=== PATIENT | male | born 1940 | race Caucasian/White ===

== ENCOUNTER 2019-08-04 21:54 | Inpatient (IN) | payer MEDICARE, MEDICAID ==
[~2019-08-04] VITALS: Ht 185.4 cm; Wt 68.0 kg
[2019-08-04 22:02] VITALS: BP 156/75
--- NOTE | 2019-08-04 22:02 | NUR ---
ED Nurse Note: Walk-in patient accompanied by son with complaints of dizziness x a couple of days. Patient is ambulatory with steady gait, and no s/s of acute distress. Will continue to monitor.
--- NOTE | 2019-08-04 22:18 | Emergency Room Report ---
History of Present Illness General Chief Complaint: Generalized Weakness Source: Patient, Family Member Present Illness HPI Is an 78-year-old male with no past medical history but does not see his doctors for many years. He presents with chief complaint of generalized weakness. Onset for last couple days. He complaining of lightheadedness. Said that hard time concentrating. Also noted to weakness in his right lower extremity. Denies any shortness of breath. Denies any fever chills but no nausea no vomiting. Worse with exertion. Better with rest. No slurred speech. Denies any chest pain. Allergies: Coded Allergies: No Known Allergies (Unverified , 08/04/19) Patient History Past Medical History: none, see triage record, old chart reviewed Past Surgical History: none Pertinent Family History: none Social History: Denies: smoking Immunizations: other Reviewed Nursing Documentation: PMH: Agreed; PSxH: Agreed Nursing Documentation-PM Past Medical History: No Stated History Review of Systems Constitutional: Reports: malaise, weakness Eye: Denies: eye pain, blurred vision ENT: Denies: ear pain, nose congestion, throat swelling Respiratory: Denies: cough, shortness of breath Cardiovascular: Denies: chest pain, palpitations Gastrointestinal: Denies: abdominal pain, diarrhea, nausea, vomiting Musculoskeletal: Denies: back pain, joint pain Skin: Denies: rash Neurological: Reports: dizziness; Denies: headache, numbness Endocrine: Denies: increased thirst, increased urine Hematologic/Lymphatic: Denies: easy bruising All Other Systems: negative except mentioned in HPI Physical Exam Vital Signs Date Time Temp Pulse Resp B/P (MAP) Pulse Ox O2 Delivery O2 Flow Rate FiO2 08/04/19 22:02 98.2 87 14 156/75 (102) 89 Room Air Vitals with high blood pressure Sp02 EP Interpretation: reviewed, normal General Appearance: no apparent distress, alert, thin Head: normocephalic, atraumatic Eyes: bilateral eye PERRL, bilateral eye EOMI ENT: hearing grossly normal, normal pharynx Neck: full range of motion, supple, no meningismus Respiratory: chest non-tender, lungs clear, normal breath sounds Cardiovascular #1: systolic murmur - 2/6, irregularly irregular Gastrointestinal: normal bowel sounds, non tender, no mass, no organomegaly, no bruit, non-distended Musculoskeletal: back normal, gait/station normal, normal range of motion Psychiatric: mood/affect normal Medical Decision Making Diagnostic Impression: Primary Impression: Episode of generalized weakness Additional Impressions: Renal mass, left Lung mass Sinus arrhythmia Anemia Qualified Codes: D64.9 - Anemia, unspecified ER Course Patient presents with generalized weakness. His son said that he had about a 20 pound weight loss in a month. Finally convinced him to go see the doctor. He has a large mass in the right upper lobe on the chest x-ray. This is new per his son. He was at [facility] about 5 to 6 years ago and had a normal chest x-ray. CT scan of his chest abdomen pelvis concerning for renal cell carcinoma with mets to the lung. No evidence of any infection. No evidence of TIA or CVA. Initially on my exam I thought that he may have atrial fibrillation EKG show arrhythmia. On the monitor, he has P waves with frequent PACs initially. Now very regular with occasional PVCs and PACs. Troponins negative. I discussed the case with Dr. Acevedo who will admit for further cardiac and oncology work-up. Lab Results Impression Labs unremarkable EKG Diagnostic Results Rate: normal Rhythm: NSR, other - marked sinus arrhythmia ST Segments: no acute changes Rhythm Strip Diag. Results EP Interpretation: yes Rate: 95 Rhythm: NSR, no ectopy, other - PACs Chest X-Ray Diagnostic Results Chest X-Ray Diagnostic Results : Chest X-Ray Ordered: Yes # of Views/Limited/Complete: 1 View Indication: Shortness of Breath EP Interpretation: Yes Interpretation: no pneumothorax, other - Large right upper lobe mass. Groundglass opacity with edema bilateral lobes. Impression: Other - RUL mass. interstitial edema Electronically Signed by: Audie Gould MD CT/MRI/US Diagnostic Results CT/MRI/US Diagnostic Results : Imaging Test Ordered: CT head, chest, abdomen and pelvis Impression Read by radiologist. CT head: Negative CT chest: Interstitial edema with moderate bilateral pleural effusions. Extensive adenopathy throughout the mediastinum. Enlarged with innumerable lesions arising from thyroid gland extending along the trachea. There is a heterogeneous mass within the right lateral aspect of the mediastinum measuring 7.5 x 5.4 cm. Favor metastatic disease from likely renal cell carcinoma. CT abdomen pelvis: Mass in the inferior pole of the left kidney measuring 4.7 x 3.9 cm. A large left renal cyst measuring 11 cm. Lytic lesion within the L4 vertebral body favor hemangioma Last Vital Signs Date Time Temp Pulse Resp B/P (MAP) Pulse Ox O2 Delivery O2 Flow Rate FiO2 08/04/19 22:02 98.2 87 14 156/75 (102) 89 Room Air Status: improved Disposition: ADMITTED INPATIENT Condition: Serious Audie Gould MD Aug 04, 2019 22:18
--- NOTE | 2019-08-04 22:30 | NUR ---
ED Nurse Note: Patient went over for CT.
--- NOTE | 2019-08-04 22:41 | NUR ---
ED Nurse Note: Patient returned from CT>
--- NOTE | 2019-08-04 22:51 | NUR ---
ED Nurse Note: Patient tolerated IV start well, blood lab collected and sent to lab.
[2019-08-04 23:07] LABS: EOSINOPHILS % (AUTO) 1.1 % (0.0-3.0); HEMOGLOBIN 9.4 G/DL (14.2-18.0); LYMPHOCYTES % (AUTO) 20.5 % (20.0-45.0); MEAN CORPUSCULAR VOLUME 78 FL (80-99); MONOCYTES % (AUTO) 8.4 % (1.0-10.0); NEUTROPHILS % (AUTO) 68.9 % (45.0-75.0); PLATELET COUNT 356 K/UL (150-450); RED BLOOD COUNT 3.99 M/UL (4.70-6.10); WHITE BLOOD COUNT 7.4 K/UL (4.8-10.8)
[2019-08-04 23:08] LABS: APPEARANCE,URINE SLIGHTLY CLOUDY; BILIRUBIN, URINE NEGATIVE (NEGATIVE); COLOR,URINE YELLOW; GLUCOSE, URINE (UA) NEGATIVE (NEGATIVE); KETONES,URINE NEGATIVE (NEGATIVE); LEUKOCYTE ESTERASE ,URINE 1+ (NEGATIVE); NITRITE,URINE NEGATIVE (NEGATIVE); PH,URINE 5 (4.5-8.0); PROTEIN,URINE 2+ (NEGATIVE); UROBILINOGEN,URINE NORMAL MG/DL (0.0-1.0)
--- NOTE | 2019-08-04 23:10 | Diagnostic Imaging Report ---
Indications: Altered mental status Technique: Spiral acquisitions obtained through the brain. Angled axial and coronal 5 x 5 mm slices were reconstructed. Total dose length product 1557 mGycm. CTDI vol(s) 64 mGy. Dose reduction achieved using automated exposure control Comparison: None. Findings: There is age-related enlargement of the ventricles and extra-axial CSF spaces. There is periventricular deep white matter low-attenuation, consistent with chronic microvascular ischemic changes. Old lacunar infarct is seen in the right lentiform nucleus and left external capsule. There is dolichoectasia of the vertebral and basilar arteries. No acute intracranial hemorrhage or edema, mass effect, nor midline shift. There is less orbits are unremarkable. There is some disease within the left sphenoid sinus. The mastoids are clear. The calvarium is intact. Impression: Chronic and age-related changes Negative for acute intracranial bleed or mass effect This agrees with the preliminary interpretation provided overnight by [facility] telerad[facility] service. The CT scanner at [facility] is accredited by the [employer] and the scans are performed using protocols designed to limit radiation exposure to as low as reasonably achievable to attain images of sufficient resolution adequate for diagnostic evaluation.
[2019-08-04 23:13] LABS: INR 1.1 (0.9-1.1)
[2019-08-04 23:16] VITALS: BP 140/61
[2019-08-04 23:17] LABS: ANION GAP 10 mmol/L (5-15); BLOOD UREA NITROGEN 32 mg/dL (7-18); CALCIUM 9.1 MG/DL (8.5-10.1); CARBON DIOXIDE 24 MMOL/L (21-32); CHLORIDE 106 MMOL/L (98-107); CREATININE 1.2 MG/DL (0.55-1.30); POTASSIUM 3.9 MMOL/L (3.5-5.1); SODIUM 140 MMOL/L (136-145)
[2019-08-04 23:22] LABS: ALANINE AMINOTRANSFERASE 14 U/L (12-78); ALBUMIN/GLOBULIN RATIO 0.7 (1.0-2.7); ALKALINE PHOSPHATASE 60 U/L (46-116); ASPARTATE AMINO TRANSFERASE 31 U/L (15-37); BILIRUBIN,TOTAL 0.5 MG/DL (0.2-1.0)
--- NOTE | 2019-08-04 23:41 | NUR ---
ED Nurse Note: Patient is resting comfortably, with no s/s of acute distress. Lab results have been generated and son has been informed. Will continue to monitor.
[2019-08-04] MEDS ORDERED: Omnipaque-300 100ml vial INJ ONE (23:45)
[2019-08-04] MEDS ORDERED: Omnipaque-300 100ml vial INJ PRN (23:45)
--- NOTE | 2019-08-05 00:10 | NUR ---
ED Nurse Note: Patient went over for Ct of abdomen with contrast.
--- NOTE | 2019-08-05 01:10 | NUR ---
ED Nurse Note: Patient resting comfortably with no s/s of acute distress. Patient's son is at bedside. Belongings sheet completed along with baseline swabs for CRE, VRE and MRSA. I will continue to monitor.
--- NOTE | 2019-08-05 02:01 | Diagnostic Imaging Report ---
CT CHEST With Contrast: Interstitial edema and moderate bilateral pleural effusions. Extensive adenopathy throughout the mediastinum. The thyroid is severely enlarged with innumerable lesions arising from the thyroid gland extending along the trachea into the mediastinum to the level of the aortic arch. There is a separate heterogeneous mass within the right lateral aspect of the mediastinum measuring 7.5 x 5.4 cm. These findings are favored metastatic likely representing renal cell carcinoma. Biopsy will be needed for confirmation. No central pulmonary embolism. Trace pericardial effusion. CT ABDOMEN + PELVIS With Contrast: Mass in the inferior pole of the left kidney measuring 4.7 x 3.9 cm highly suggestive of renal cell carcinoma. Additionally there is a large left renal cyst measuring 11 cm. Marked prostatomegaly. Advanced descending and sigmoid diverticulosis without diverticulitis. Lytic lesion within the L4 vertebral body favored to represent a hemangioma.
--- NOTE | 2019-08-05 02:30 | NUR ---
TRANSFER TO FLOOR: Patient transferred to as ordered, per Dr Null. Report given to CLARISSA Márquez. Belongings and medications given to . Family and or S/O informed of transfer.
--- NOTE | 2019-08-05 02:35 | NUR ---
NURSE NOTES: Received report from CLARISSA Clayton. regarding patients arrival on TELE floor form ED. Belingings checked and noted, head to toe assessment initiated with no skin breakdown observed. Orders carried out per MD. Will continue plan of care
[2019-08-05 03:00] VITALS: BP 137/78
--- NOTE | 2019-08-05 03:27 | NUR ---
NURSE NOTES: Called and left message to Kyrie Acevedo MD. regarding patient's arrival on the floor and admit orders.
[2019-08-05] MEDS ORDERED: HYDROcodone/Acetamin 5/325 tab ORAL PRN (03:45)
[2019-08-05] MEDS ORDERED: Acetaminophen 500mg (ES) tab ORAL PRN (03:45)
[2019-08-05] MEDS: Heparin 5000 units/ml inj SUBQ SCH ×3 (06:00→22:28)
--- NOTE | 2019-08-05 07:56 | NUR ---
HAND-OFF: Report given to Domingo Ashford RN. Patient in bed AAO X4 eating breakfast with no S/S of distress. Endorsed plan of care.
[2019-08-05 08:00] VITALS: BP 136/70
--- NOTE | 2019-08-05 08:13 | NUR ---
NURSE NOTES: Report received from CLARISSA Márquez. Pt is sitting up in bed eating breakfast with no signs of distress. A+Ox4, denies pain/SOB. Respirations are even and unlabored on 2 L NC. IV site is intact and saline locked. Bed is at lowest position, brakes engaged, siderails x2, bed alarm on, and call light within reach. Pt is in stable condition at this time; will continue to monitor.
[2019-08-05 09:11] LABS: BASOPHILS % (AUTO) 0.9 % (0.0-2.0); EOSINOPHILS % (AUTO) 0.6 % (0.0-3.0); HEMOGLOBIN 9.1 G/DL (14.2-18.0); LYMPHOCYTES % (AUTO) 20.5 % (20.0-45.0); MEAN CORPUSCULAR VOLUME 76 FL (80-99); MONOCYTES % (AUTO) 6.2 % (1.0-10.0); NEUTROPHILS % (AUTO) 71.8 % (45.0-75.0); PLATELET COUNT 365 K/UL (150-450); RED BLOOD COUNT 3.93 M/UL (4.70-6.10); RED CELL DISTRIBUTION WIDTH 15.2 % (11.6-14.8); WHITE BLOOD COUNT 7.2 K/UL (4.8-10.8)
[2019-08-05 09:37] LABS: BLOOD UREA NITROGEN 25 mg/dL (7-18); CALCIUM 8.9 MG/DL (8.5-10.1); CARBON DIOXIDE 24 MMOL/L (21-32)
--- NOTE | 2019-08-05 10:13 | Diagnostic Imaging Report ---
Indication: Shortness of breath Technique: One view of the chest Comparison: none Findings: There is a large right mediastinal mass, some of the boundaries of which are obscured that measures at least 8 cm in diameter. There is also marked widening of the upper mediastinum. There is diffuse bilateral interstitial disease. There is some evidence of bronchiectasis. There are Kirley B lines on the right. There are bilateral pleural effusions. The heart size is upper limits normal. No airspace consolidation Impression: Large right mediastinal mass. Recommend CT for further evaluation Marked upper mediastinal widening Diffuse bilateral interstitial disease. Acuity indeterminate, suspect combination of acute and chronic disease. Presence of bronchiectasis suggest a significant component of chronic fibrosis, but the presence of Kirley B lines on the right as well as the bilateral pleural fluid raises possibility of a component of interstitial edema
[2019-08-05 10:27] LABS: CHLORIDE 108 MMOL/L (98-107); POTASSIUM 3.7 MMOL/L (3.5-5.1); SODIUM 141 MMOL/L (136-145)
--- NOTE | 2019-08-05 10:31 | History & Physical ---
History of Present Illness General Date patient seen: Aug 05, 2019 Reason for Hospitalization: Generalized Weaknessabnormal weight lossleft renal and right lung massbilateral pleural effusions Present Illness HPI patient seen and examined full note dictated [id number] Mireya Villatoro Allergies: Coded Allergies: No Known Allergies (Unverified , 08/04/19) Patient History Healthcare decision maker Resuscitation status Do Not Resuscitate Advanced Directive on File No Review of Systems Review of Symptoms General ROS: no weight loss or fever Psychological ROS: no depression or mood changes, no memory loss Ophthalmic ROS: no visual changes or eye irritation ENT ROS: no nasal congestion, hearing loss, dizziness Allergy and Immunology ROS: no allergic symptoms or urticaria Hematological and Lymphatic ROS: no swollen glands, unusual bleeding or bruising Endocrine ROS: no polyuria, polydipsia, weight changes, temperature intolerance Respiratory ROS: no cough, shortness of breath, or wheezing Cardiovascular ROS: no chest pain or dyspnea on exertion Gastrointestinal ROS: denies abdominal pain, bright red blood in stool. Musculoskeletal ROS: no myalgias or arthralgias Neurological ROS: no TIA or stroke symptoms Dermatological ROS: no new or changing skin lesions, rashes or pruritis Physical Exam Physical Exam General appearance: alert, cooperative, no distress, appears stated age Head: Normocephalic, without obvious abnormality, atraumatic Eyes: conjunctivae/corneas clear. PERRL, EOM's intact. Fundi benign Throat: Lips, mucosa, and tongue normal. Teeth and gums normal Neck: supple, symmetrical, trachea midline, no adenopathy, thyroid: not enlarged, symmetric, no tenderness/mass/nodules, no carotid bruit and no JVD Lungs: clear to auscultation bilaterally Heart: regular rate and rhythm, S1, S2 normal, no murmur, click, rub or gallop Abdomen: soft, non-tender. Bowel sounds normal. No masses, no organomegaly Extremities: extremities normal, atraumatic, no cyanosis or edema Pulses: 2+ and symmetric Skin: Skin color, texture, turgor normal. No rashes or lesions Neurologic: Grossly normal Last 24 Hour Vital Signs Date Time Temp Pulse Resp B/P (MAP) Pulse Ox O2 Delivery O2 Flow Rate FiO2 08/05/19 08:00 3.0 08/05/19 08:00 96.9 90 19 136/70 (92) 91 08/05/19 04:00 2.0 08/05/19 04:00 87 08/05/19 03:10 Room Air 08/05/19 03:00 97.2 82 18 137/78 (97) 94 08/05/19 03:00 83 08/05/19 02:30 98.2 91 19 140/61 95 Nasal Cannula 3.0 08/04/19 23:16 98.2 91 19 140/61 95 Nasal Cannula 3.0 08/04/19 22:02 87 14 Room Air 08/04/19 22:02 98.2 87 14 156/75 89 Room Air 08/04/19 22:02 98.2 87 14 156/75 (102) 89 Room Air Intake and Output 08/04/19 08/05/19 19:00 07:00 Intake Total 120 ml Balance 120 ml Intake Oral 120 ml # Voids 1 Laboratory Tests Test 08/04/19 22:43 08/04/19 22:59 08/05/19 08:00 White Blood Count 7.4 K/UL (4.8-10.8) 7.2 K/UL (4.8-10.8) Red Blood Count 3.99 M/UL (4.70-6.10) L 3.93 M/UL (4.70-6.10) L Hemoglobin 9.4 G/DL (14.2-18.0) L 9.1 G/DL (14.2-18.0) L Hematocrit 31.0 % (42.0-52.0) L 30.0 % (42.0-52.0) L Mean Corpuscular Volume 78 FL (80-99) L 76 FL (80-99) L Mean Corpuscular Hemoglobin 23.6 PG (27.0-31.0) L 23.0 PG (27.0-31.0) L Mean Corpuscular Hemoglobin Concent 30.3 G/DL (32.0-36.0) L 30.2 G/DL (32.0-36.0) L Red Cell Distribution Width 14.0 % (11.6-14.8) 15.2 % (11.6-14.8) H Platelet Count 356 K/UL (150-450) 365 K/UL (150-450) Mean Platelet Volume 4.7 FL (6.5-10.1) L 4.5 FL (6.5-10.1) L Neutrophils (%) (Auto) 68.9 % (45.0-75.0) 71.8 % (45.0-75.0) Lymphocytes (%) (Auto) 20.5 % (20.0-45.0) 20.5 % (20.0-45.0) Monocytes (%) (Auto) 8.4 % (1.0-10.0) 6.2 % (1.0-10.0) Eosinophils (%) (Auto) 1.1 % (0.0-3.0) 0.6 % (0.0-3.0) Basophils (%) (Auto) 1.0 % (0.0-2.0) 0.9 % (0.0-2.0) Prothrombin Time 11.4 SEC (9.30-11.50) Prothromb Time International Ratio 1.1 (0.9-1.1) Activated Partial Thromboplast Time 29 SEC (23-33) Sodium Level 140 MMOL/L (136-145) 141 MMOL/L (136-145) Potassium Level 3.9 MMOL/L (3.5-5.1) 3.7 MMOL/L (3.5-5.1) Chloride Level 106 MMOL/L (98-107) 108 MMOL/L (98-107) H Carbon Dioxide Level 24 MMOL/L (21-32) 24 MMOL/L (21-32) Anion Gap 10 mmol/L (5-15) Blood Urea Nitrogen 32 mg/dL (7-18) H 25 mg/dL (7-18) H Creatinine 1.2 MG/DL (0.55-1.30) 1.0 MG/DL (0.55-1.30) Estimat Glomerular Filtration Rate mL/min (>60) mL/min (>60) Glucose Level 116 MG/DL (74-106) H 132 MG/DL (74-106) H Calcium Level 9.1 MG/DL (8.5-10.1) 8.9 MG/DL (8.5-10.1) Total Bilirubin 0.5 MG/DL (0.2-1.0) Aspartate Amino Transf (AST/SGOT) 31 U/L (15-37) Alanine Aminotransferase (ALT/SGPT) 14 U/L (12-78) Alkaline Phosphatase 60 U/L (46-116) Troponin I 0.000 ng/mL (0.000-0.056) 0.000 ng/mL (0.000-0.056) Total Protein 7.3 G/DL (6.4-8.2) Albumin 3.0 G/DL (3.4-5.0) L Globulin 4.3 g/dL Albumin/Globulin Ratio 0.7 (1.0-2.7) L Urine Color Yellow Urine Appearance Slightly cloudy Urine pH 5 (4.5-8.0) Urine Specific [place] 1.020 (1.005-1.035) Urine Protein 2+ (NEGATIVE) H Urine Glucose (UA) Negative (NEGATIVE) Urine Ketones Negative (NEGATIVE) Urine Blood Negative (NEGATIVE) Urine Nitrite Negative (NEGATIVE) Urine Bilirubin Negative (NEGATIVE) Urine Urobilinogen Normal MG/DL (0.0-1.0) Urine Leukocyte Esterase 1+ (NEGATIVE) H Urine RBC 0 /HPF (0 - 0) Urine WBC 5-10 /HPF (0 - 0) H Urine Squamous Epithelial Cells None /LPF (NONE/OCC) Urine Bacteria Few /HPF (NONE) Urine Mucus Moderate /LPF (NONE/OCC) H Hemoglobin A1c 6.0 % (4.3-6.0) Pro-B-Type Natriuretic Peptide 269 pg/mL (0-125) H Thyroid Stimulating Hormone (TSH) < 0.010 uiU/mL (0.358-3.740) Microbiology Date/Time Source Procedure Growth Status 08/05/19 00:46 Rectum Received Height (Feet): 6 Height (Inches): 1.00 Weight (Pounds): 150 Medications Current Medications Medications (Trade) Dose Ordered Sig/Yovany Route PRN Reason Start Time Stop Time Status Last Admin Dose Admin Acetaminophen (Tylenol) 1,000 mg Q8H PRN ORAL Mild Pain/Temp > 100.5 08/05/19 03:45 09/04/19 03:44 Acetaminophen/ Hydrocodone Bitart ([place] 5/325) 1 tab Q4H PRN ORAL Moderate Pain (Pain Scale 4-6) 08/05/19 03:45 08/12/19 03:44 Heparin Sodium (Porcine) (Heparin 5000 units/ml) 5,000 units EVERY 8 HOURS SUBQ 08/05/19 06:00 09/04/19 05:59 Iohexol (OMNIPAQUE-300 100ml) 100 ml NOW PRN INJ Radiology Procedure 08/04/19 23:45 08/06/19 23:40 [facility] Hospital declaration INPATIENT level of care is warranted for this patient because patient is a 89 year old with who presents with suspicion of . I have a high level of concern because . Patient is at high risk for . Plan of care/treatment include . Patient care is expected to be greater than 2 midnights. OBSERVATION level of care is warranted for this patient. Patient is a 89 year old with who presents with . Patient will be admitted for 1 midnight, but if additional night(s) is/are necessary, patient will be converted to inpatient status for the entire hospitalization Disposition: Once the patient is stable to leave the hospital, I anticipate the patient will likely be discharged to the following environment: Estimated discharge date: I spent 70 minutes on this patient's case, and minutes was dedicated to counseling and/or care coordination. MIPS ([employer]-based Incentive Payment System) Applicable CPT: 10664, 68243 CHECK ALL THAT ARE MET: Measure #5 (CHF): All ages. Prescribe BAUDILIO/ARB upon discharge for patients with left ventricular systolic dysfunction. If not, the reason is clearly documented in the medical chart. Measure #8 (CHF): All ages. Prescribe a beta eddie upon discharge for patients with left ventricular systolic dysfunction. If not, the reason is clearly documented in the medical chart. Measure #47 Advance care plan or surrogate decision maker documented in the medical record. Measure #130 The provider has documented, updated, or reviewed the patients current medication list and has documented it in the patients note. Measure #374 (All): Send report to referring provider. Measure #407(Sepsis due to MSSA bacteremia): Age 18+ Patient treated with a beta-lactam antibiotic (Nafcillin, Oxacillin or Cefazolin) as definitive therapy. MEDICAL COMPLEXITY High complexity medical decision making (need 2/3 categories) Problem - need 4 points Acute/new problem with new plan for workup (4 points, 1 max) Acute/new problem without additional workup (3 points, 1 max) Unstable chronic problem actively being managed (2 point each, 2 max) Stable chronic problem actively being managed (1 point each, 2 max) Self-limited/transient process (constipation, muscle ache, etc) (1 point each , 2 max) Data - need 4 points Reviewed labs/imaging studies (1 points, 2 max) Independent review of imaging (EKG, xrays, etc) (2 points, 2 max) Discussed case with consult/other MD/RN (2 points, 2 max) High Risk - qualify if have one of the following: Severe exacerbation of acute problem, acute mental status change, IV narcotics , monitoring drug levels (vancomycin, INR, tacrolimus etc) MIREYA HALEY Aug 05, 2019 10:31
--- NOTE | 2019-08-05 11:30 | Cardiology Report ---
APPROVED REPORT EKG Measurement Heart [id number] Multifocal atrial rhythm Otherwise normal ECG
[2019-08-05 12:00] VITALS: BP 145/85
--- NOTE | 2019-08-05 14:58 | NUR ---
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 98.2 HR 87 RR 14 B/P 156/75 3L NC BUN [address]= NEGATIVE CT ABDOMEN/PELVIS=Mass in the inferior pole of the left kidney measuring 4.7 x 3.9 cm highly suggestive of renal cell carcinoma. Additionally there is a large left renal cyst measuring 11 cm. IS: IV BOLUS NS X 1 LITER IOHEXOL IV ADMITTED TO TELE @ 0230 TELE STATUS DCP RETURN HOME
[2019-08-05 16:00] VITALS: BP 144/77
--- NOTE | 2019-08-05 17:05 | Diagnostic Imaging Report ---
Indication: Hypothyroidism, in enlarged thyroid on recent CT scan Technique: Grayscale and duplex images of the thyroid Comparison: No comparison sonograms. Reference made to CT scan dated 08/04/2019 Findings: Right thyroid lobe measures 6.7 cm length x 3.6 cm AP. Left thyroid lobe measures 6.2 cm length x 2.5 cm AP. Both thyroid lobes are enlarged, heterogeneous, with innumerable nodules. . Impression: Enlarged multinodular thyroid
--- NOTE | 2019-08-05 17:14 | Consultation ---
Consult Note Assessment/Plan DICT # [id number] Wilfrido Ken MD Aug 05, 2019 17:14
--- NOTE | 2019-08-05 19:32 | NUR ---
NURSE NOTES: Report given to CLARISSA Muhammad. Pt is in stable condition; plan of care endorsed.
--- NOTE | 2019-08-05 19:35 | NUR ---
NURSE NOTES: Received report from CLARISSA Rojas. Patient in bed awake showing no signs of acute distress. AOx4. Respiration even and non labored on room air. No sob noted. IV noted on Left AC 20g SL. Bed in lowest position, wheels locked and alarm on. Call button within reach. All needs attended and met. Will continue plan of care.
[2019-08-05 20:00] VITALS: BP 130/83
--- NOTE | 2019-08-05 20:00 | Consultation ---
DATE OF CONSULTATION: 08/05/2019 PULMONARY CONSULTATION CONSULTING PHYSICIAN: Wilfrido Ken M.D. REFERRING PHYSICIAN: Mary Acevedo M.D. REASON FOR CONSULTATION: Abnormal chest radiograph. HISTORY OF PRESENT ILLNESS: The patient is an 78-year-old male with a history of urolithiasis, not regularly followed up by a physician, as well as BPH, presenting with generalized weakness, who had a couple of days of lightheadedness and generalized malaise. He has been afebrile with stable vital signs since coming to the hospital. His laboratory workup was remarkable for anemia (microcytic) and elevated BUN. He also had radiographic findings which were concerning. Initially, a CT scan of his head was done, which showed chronic and age-related changes. Chest x-ray demonstrated a large right mediastinal mass with mediastinal widening. For this reason, a CT chest and a CT abdomen and pelvis were done. The CT chest showed a mass in the inferior pole of the left kidney 4.7 x 3.9 cm suggestive of a renal cell carcinoma with a left renal cyst as well as marked prostatomegaly and diverticular changes and L4 lesion was noted as well. No central pulmonary embolism was noted, but there was a severely enlarged thyroid with innumerable lesions extending into the trachea and mediastinum and a separate heterogeneous mass within the right lateral aspect of the mediastinum 7.5 x 5.4 cm. Of note, the patient had a CT scan of the chest done in December of 2012 for 6-1/2 years ago at which point, there was a very enlarged thyroid with multiple nodules with significant substernal extent with nodules arising from both lobes and a large right paratracheal mass. The right peritracheal mass at the time was 6 cm in size and felt to be in continuity with thyroid tissue. On our CT here today, this is about 7.5 x 5.4 cm. The patient has been admitted for further evaluation and management. PAST MEDICAL HISTORY: 1. Anemia. 2. BPH. 3. Nephrolithiasis. PAST SURGICAL HISTORY: Cystoscopy and lithotripsy on April 15, 2014, Dr. Jenkins. Pathology at that time showed ureteral stents with stones that were removed. Another cystoscopy on January 03, 2013. ALLERGIES: No known drug allergies. MEDICATIONS: Prior to admission medications, none. Current medications, Tylenol, heparin subcutaneous, Stephens, and metoprolol. SOCIAL HISTORY: No tobacco, alcohol, or drug use. His is recently . FAMILY HISTORY: Noncontributory. REVIEW OF SYSTEMS: Negative other than history of present illness. PHYSICAL EXAMINATION: VITAL SIGNS: Temperature 97.6, pulse 86, blood pressure 145/85, respiratory rate 18, and saturating 91% on 3 L. GENERAL: He is an elderly male, in no acute distress. Awake, alert, and oriented x3. HEENT: Normocephalic and atraumatic. Oropharynx is clear with moist mucous membranes neck is supple without lymphadenopathy or JVD. CHEST: Clear to auscultation bilaterally. HEART: Regular rate and rhythm. ABDOMEN: Soft, nontender, and nondistended. EXTREMITIES: No cyanosis, clubbing, or edema. ANCILLARY DATA: White count 7.2, hemoglobin 9.1, MCV 76, and platelet count 365,000. INR 1.1. Sodium 141, potassium 3.7, chloride 108, BUN 25, creatinine 1, and glucose 132. Hemoglobin A1c 6. Troponin 0 x3. BNP 269. TSH less than 0.01. Albumin 3. Total protein 7.3. Urinalysis, 2+ protein, 1+ leukocyte esterase, 5 to 10 whites. IMAGING: CT of the head shows chronic age-related changes. Chest x-ray shows mediastinal mass. CT of the chest, abdomen, and pelvis shows an inferior pole left kidney 4.7 x 3.9 cm mass, large left renal cyst, L4 lytic lesion, 7.5 cm mediastinal mass on the right, innumerable thyroid nodules dropping down into the mediastinum. Thyroid ultrasound shows enlarged multinodular thyroid. ASSESSMENT: The patient is an 78-year-old male with a history of nephrolithiasis and multinodular thyroid with intrathoracic thyroid presenting for evaluation of failure to thrive, noted to have a large right mediastinal mass as well as a renal lesion concerning for primary renal cell carcinoma in the left kidney. The patient's chest findings per report are similar to findings at [facility] 6 years ago. However, we have to review these images [id number] to determine for any change. I suspect there are 2 separate processes going on, likely mediastinal thyroid and multinodular thyroid as well as a primary renal cell carcinoma. Furthermore, the patient has evidence of a microcytic anemia, protein-calorie malnutrition, and generalized failure to thrive. Further workup needs to be determined in light of overall goals of care. PROBLEM LIST: 1. A large 7 x 5 cm right mediastinal mass, likely secondary to intrathoracic thyroid. 2. Multinodular goiter. 3. A 4.7 x 3.9 cm left renal mass concerning for renal cell carcinoma. 4. Large left renal cyst. 5. L4 vertebral lytic lesion. 6. Prostatomegaly and history of BPH. 7. History of nephrolithiasis. 8. Microcytic anemia. 9. Protein-calorie malnutrition and failure to thrive. 10. Low TSH. TREATMENT PLAN: 1. I need to determine overall goals of care and plan for biopsy. 2. Consider PET-CT scan at [facility] to compare the current findings with prior. 3. Consider Urology evaluation for biopsy of renal mass versus CT-guided biopsy. 4. Heme-Onc evaluation. 5. Based on plan, biopsy of mediastinal mass can be done. The patient benefit from thoracic surgery evaluation as an outpatient. 6. Consider GI evaluation and colonoscopy. 7. Monitor volumes and renal function. 8. The patient is DNR/DNI. Dr. Acevedo, thank you for allowing me to assist in the care of your patient. If I may be of any assistance in the future, please do not hesitate to ask. Wilfrido Ken M.D. DR: GYPSY JOB#: [id number] CC:
--- NOTE | 2019-08-05 21:18 | Consultation ---
Consult Note Consult Note Cardiology for Dr. Mojica Full consult dictated #[id number] Edith Sarah MD Aug 05, 2019 21:18
[2019-08-05] MEDS: Metoprolol Tartrate 12.5mg TAB ORAL SCH (22:24)
--- NOTE | 2019-08-05 23:15 | Consultation ---
DATE OF CONSULTATION: 08/05/2019 CARDIOLOGY CONSULTATION Coverage for Dr. Colin Mojica REASON FOR CONSULTATION: Atrial fibrillation and dizziness. HISTORY OF PRESENT ILLNESS: The patient is an 78-year-old man with no previous history of cardiac disease who has not seen a doctor in several years. He presented to the emergency room on 08/04/2019 with dizziness and leg weakness over the past two days. He denied palpitations, chest pain, or dyspnea. His blood pressure was 156/75, pulse 87 sinus rhythm with frequent premature atrial complexes and respirations 14, oxygen saturation was 89% on room air however. His chest x-ray showed large right upper lung mass. CT of the chest, abdomen, pelvis showed left kidney mass suggestive of renal cell carcinoma and large right mediastinal mass felt consistent with metastatic disease. He was admitted for further treatment. He subsequently developed atrial fibrillation with rapid ventricular rates in the 130s but rhythm has now reverted back to normal sinus rhythm. His cardiac workup has also included an echo, which showed normal left ventricular function. A small pericardial effusion and no significant valve lesions. Cardiology evaluation was requested. MEDICATIONS: Currently metoprolol 12.5 mg every 12 hours, subcutaneous heparin 5000 units every 8 hours, Valatie as needed, Tylenol as needed. ALLERGIES: No known drug allergies. PAST MEDICAL HISTORY: As noted above. SOCIAL HISTORY: The patient denies previous history of tobacco use, alcohol, or drug use. PHYSICAL EXAMINATION: VITAL SIGNS: Blood pressure is 130/83, pulse 88 regular, respirations 18, and afebrile. GENERAL: Alert thin elderly appearing white male, in no acute distress. HEENT: Normocephalic and atraumatic. Pupils are equal, round, and reactive to light. Sclerae are anicteric. Oral mucosa are moist. NECK: Supple. There is no jugular venous distention. Prominent external jugular vein and venous pattern over chest. No carotid bruits. CHEST: Clear lungs. HEART: Regular S1 and S2 with a 2/6 systolic ejection murmur at the left sternal border. No S3, or rubs. ABDOMEN: Soft, nontender. No palpable mass. EXTREMITIES: No cyanosis, clubbing, or edema. LABORATORY DATA: Significant for anemia with hemoglobin 9.1, hematocrit 30, normal white count 7200, platelets 365,000. BUN 25, creatinine 1.0. Troponin 0. ProBNP 269. TSH less than 0.01. EKG shows sinus rhythm with premature atrial complexes. Rate of 94 beats per minute, axis +[address]-segment or T-wave changes. Echo today showed normal left ventricular systolic function, ejection fraction 65%. Trace mitral and tricuspid regurgitation. Normal pulmonary pressures. Chest x-ray shows a large right upper lung mass and bilateral pleural effusions which are small. ASSESSMENT AND RECOMMENDATIONS: The patient is an 78-year-old man who was admitted with weight loss (20 pounds over the past month) and two-day history of dizziness and weakness. He was found to have a left kidney mass and right mediastinal mass felt to be renal cell carcinoma with metastases. He developed atrial fibrillation after admission but rhythm has now reverted back to normal sinus. He does not appear with evidence for acute coronary syndrome. Troponins are negative. He has no chest pain and no ischemic EKG changes. I would agree with metoprolol titrated based on heart rate and blood pressure response. We would not start anticoagulation given the renal cell carcinoma and bleeding risk. Further evaluation of his tumor will be as per the primary team. Dr. Mojica will continue to follow the patient for cardiac issues starting 08/06/2019. Edith Sarah M.D. DR: Karishma JOB#: [id number] CC:
[2019-08-06] VITALS: BP 122/74
--- NOTE | 2019-08-06 01:26 | NUR ---
NURSE NOTES: Pt. is having Cardiac rhythm showing uncontrolled Afib with HR 110-130. Called and left a message for Dr. Luke. Awaiting call back. Addendum: 08/06/19 at 0211 by YARITZA MCCURDY RN Initially called Dr. Mojica to inform pt's heart rhythm and advised to call Dr. Luke.
--- NOTE | 2019-08-06 02:11 | NUR ---
NURSE NOTES: Spoke with Dr. Luke for pt's heart Rhythm showing uncontrolled afib w/rvr HR 120. Received new orders, noted and carried out.
[2019-08-06] MEDS ORDERED: Metoprolol 25mg tab ORAL ONE (02:30)
[2019-08-06 04:00] VITALS: BP 109/69
[2019-08-06] MEDS: Heparin 5000 units/ml inj SUBQ SCH (06:06)
--- NOTE | 2019-08-06 07:24 | NUR ---
HAND-OFF: Report given to CLARISSA Rojas.
--- NOTE | 2019-08-06 07:36 | NUR ---
NURSE NOTES: Report received from CLARISSA Muhammad. Pt is sitting up in bed eating breakfast with no signs of distress. A+Ox4, denies pain/SOB. Respirations are even and unlabored on 3 L NC. IV site is intact and saline locked. Bed is at lowest position, brakes engaged, siderails x2, bed alarm on, and call light within reach. Pt is in stable condition at this time; will continue to monitor.
[2019-08-06 08:00] VITALS: BP 123/74
[2019-08-06] MEDS: Metoprolol Tartrate 12.5mg TAB ORAL SCH (08:15)
[2019-08-06 08:26] LABS: BASOPHILS % (AUTO) 1.2 % (0.0-2.0); EOSINOPHILS % (AUTO) 0.3 % (0.0-3.0); HEMATOCRIT 34.1 % (42.0-52.0); HEMOGLOBIN 10.3 G/DL (14.2-18.0); LYMPHOCYTES % (AUTO) 23.1 % (20.0-45.0); MEAN CORPUSCULAR VOLUME 76 FL (80-99); MONOCYTES % (AUTO) 6.7 % (1.0-10.0); NEUTROPHILS % (AUTO) 68.7 % (45.0-75.0); PLATELET COUNT 405 K/UL (150-450); RED BLOOD COUNT 4.46 M/UL (4.70-6.10); RED CELL DISTRIBUTION WIDTH 15.3 % (11.6-14.8); WHITE BLOOD COUNT 7.7 K/UL (4.8-10.8)
[2019-08-06 08:40] LABS: % IRON SATURATION 7 % (15-50); IRON 19 ug/dL (50-175); TOTAL IRON BINDING CAPACITY 282 ug/dL (250-450)
[2019-08-06 08:59] LABS: FERRITIN 61 NG/ML (8-388)
--- NOTE | 2019-08-06 11:00 | Consultation ---
DATE OF CONSULTATION: 08/06/2019 ENDOCRINOLOGY CONSULTATION CONSULTING PHYSICIAN: Carson Nielsen M.D. REFERRING PHYSICIAN: Mary Acevedo M.D. REASON FOR CONSULTATION: Abnormal thyroid function and enlarged thyroid. HISTORY OF PRESENT ILLNESS: The patient is an 78-year-old man with no significant past medical history. Basically, the patient has not seen any doctors for many years, presented to the Emergency Department on August 04, 2019 with dizziness, lower extremity weakness for 2 to 3 days. He denies any palpitation or chest pain. Blood pressure was elevated. CT of the chest, abdomen and pelvis showed the left kidney mass suggestive of renal cell carcinoma as well as large right mediastinal mass, which was consistent with metastatic disease. Also on chest imaging, the patient was noted to have an enlarged thyroid with multiple nodules extending to the upper mediastinum. The thyroid ultrasound shows enlarged thyroid with multiple nodules. TSH is undetectable. FAMILY HISTORY: The patient denies any family history of thyroid disease. MEDICATIONS: Reviewed and reconciled. ALLERGIES TO MEDICATION: None. PAST MEDICAL HISTORY: As listed above. PAST SURGICAL HISTORY: None. SOCIAL HISTORY: No smoking, alcohol, or drug use. LABORATORY VALUES: TSH undetectable. Sodium 141, potassium 3.7, chloride 108, bicarbonate 20, BUN 25, and creatinine 1.0, glucose of 132. A1c of 6. Troponin negative x3. BNP 269. REVIEW OF SYSTEMS: A 12 point review of systems was performed. Pertinent positives and negatives mentioned in the present illness. PHYSICAL EXAMINATION: VITAL SIGNS: Temperature 97.4, heart rate 69, blood pressure 109/69, respiratory rate of 20. HEENT: Pupils are reactive to light. Sclerae are anicteric. NECK: No JVD. Thyroid is palpable and enlarged and feels nodular. HEART: Regular. LUNGS: Clear. ABDOMEN: Positive bowel sounds. EXTREMITIES: No clubbing, cyanosis, or edema. DIAGNOSES: 1. New diagnosis of renal mass with a possible mediastinal mass. 2. 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 3. Borderline diabetes. 4. Elevated blood pressure without diagnosis of hypertension. DISCUSSION: The patient is not aware of the diagnosis of renal mass with metastasis to the mediastinum, I did not disclose this to him. TSH is undetectable suggestive of hyperthyroidism, but clinically the patient does not look to be thyrotoxic. Free T4 and free T3 are ordered and the results are pending. Once I have the results and if they are elevated then will start treating the patient with antithyroid medication, methimazole. I will decide on the dose once I see the level of the free T4 and free T3. The patient has been already treated with beta-eddie, metoprolol under care of the gluer and slicer hand. Review of the imaging of the thyroid reveals multiple nodules in both lobes, but none of them are worrisome enough to have an indication for FNA. At this point, I recommend follow-up with surveillance ultrasound in six months. I will follow the results of the thyroid tests and decide on the dosage of antithyroid medication therapy. Thank you, Dr. Acevedo for the courtesy of this consultation. I provided the patient with my contact information. So, if the family members have any questions, they can get in touch with me. Carson Nielsen M.D. DR: Francesca JOB#: [id number] CC: [email or web address]
--- NOTE | 2019-08-06 11:30 | NUR ---
NURSE NOTES: Left message with Jannet mtz regarding blood glucose of 421. Will give insulin based on protocol. Awaiting response from . Addendum: 08/06/19 at 1131 by IVETT HARVEY RN WRONG PATIENT
--- NOTE | 2019-08-06 11:42 | Diagnostic Imaging Report ---
CLINICAL INDICATION:Pain TECHNIQUE: No oral contrast, per emergency room physician request. Spiral acquisitions obtained through the chest, abdomen, and pelvis. Multiplanar reconstructions were generated. Total dose length product 2855 mGycm. CTDIvol(s) 38 mGy. Radiation dose was minimized using automated exposure control COMPARISON: none FINDINGS Chest: The thyroid is massively enlarged, contains innumerable nodules and calcification. There is a large right upper mediastinal mass which measures 8.3 x 5.1 x 6.9 cm. This is inferolateral to the thyroid and separate from it. Enhancement characteristics and calcification pattern is similar to the thyroid, however. There is extensive mediastinal lymphadenopathy, with innumerable conglomerate nodes inseparable from one another, measuring up to 4 cm in diameter. The nodes are homogeneous and enhancing. Lung window images demonstrate bilateral large pleural effusions, approximately equal in size. There is interstitial congestion and interstitial septal thickening throughout the lungs, left greater than right. There are also numerous small pulmonary nodules. There is compressive atelectasis of significant portions of both lower lobes. The bones demonstrate degenerative spondylosis changes. Abdomen pelvis: The appendix is normal. There is some colonic diverticulosis. No evidence of diverticulitis. There is mild prominence and wall thickening of the terminal ileum. No small bowel distention. No free or loculated intraperitoneal gas or fluid is evident. The liver demonstrates a few subcentimeter low-attenuation lesions which are too small to characterize. The gallbladder is nondistended, demonstrates equivocal mild wall thickening. No biliary ductal dilatation. The pancreas, spleen, adrenals are unremarkable. The left kidney demonstrates a complex cystic and solid mass with septations coming off of the lower pole. This measures 4.8 x 3.6 x 4.8 cm. A 9.4 cm cyst comes off of the left upper pole. Other cysts are seen in both kidneys. No retroperitoneal or mesenteric mass or adenopathy. The prostate is markedly enlarged, measuring 7.3 cm transverse by 5 cm AP. The bones demonstrate an osteosclerotic lesion within the right iliac bone, probably representing a bone island. Low-attenuation lesion within the L4 vertebral body most likely represents a benign hemangioma. IMPRESSION: 4.8 x 3.6 x 4.8 cm left lower pole renal cystic and solid mass, suspicious for renal neoplasm Diffusely enlarged thyroid with innumerable nodules and calcifications. Most likely represents multinodular goiter but given evidence of disseminated neoplasm elsewhere the possibility of neoplastic involvement should be considered Separate 8.3 x 5.1 x 6.9 cm right upper mediastinal mass. This could represent metastatic thyroid carcinoma. However, given the similarity in appearance to the thyroid, this could also represent a mass of thyroid origin. Extensive mediastinal lymphadenopathy, presumably neoplastic Bilateral pleural effusions. Bilateral pulmonary parenchymal interstitial disease. Most likely on the basis of pulmonary edema, but neoplastic interstitial disease also possible, clinically given the presence of pulmonary nodules Colonic diverticulosis. No evidence of diverticulitis Prostatomegaly Mild wall thickening of the terminal ileum. Could indicate enteritis. Correlate with clinical findings Renal cysts. Subcentimeter low-attenuation liver and renal lesions, too small to characterize, most likely represent benign simple cysts. No further follow-up necessary Other incidental findings as noted This agrees with the preliminary interpretation provided overnight by [facility] teleradiology service. The CT scanner at [facility] is accredited by the [employer] and the scans are performed using protocols designed to limit radiation exposure to as low as reasonably achievable to attain images of sufficient resolution adequate for diagnostic evaluation.
[2019-08-06] MEDS ORDERED: METOPROLOL TART25 MG ORAL (11:59)
[2019-08-06 12:00] VITALS: BP 127/72
--- NOTE | 2019-08-06 12:54 | Pulmonology Progress Note ---
Assessment/Plan Problems: (1) Episode of generalized weakness (2) Renal mass, left (3) Lung mass (4) Sinus arrhythmia (5) Anemia Assessment/Plan ASSESSMENT: The patient is an 78-year-old male with a history of nephrolithiasis and multinodular thyroid with intrathoracic thyroid presenting for evaluation of failure to thrive, noted to have a large right mediastinal mass as well as a renal lesion concerning for primary renal cell carcinoma in the left kidney. The patient's chest findings per report are similar to findings at [facility] 6 years ago. However, we have to review these images [id number] to determine for any change. I suspect there are 2 separate processes going on, likely mediastinal thyroid and multinodular thyroid as well as a primary renal cell carcinoma. Furthermore, the patient has evidence of a microcytic anemia, protein-calorie malnutrition, and generalized failure to thrive. Further workup needs to be determined in light of overall goals of care. PROBLEM LIST: 1. A large 7 x 5 cm right mediastinal mass, likely secondary to intrathoracic thyroid. 2. Multinodular goiter. 3. A 4.7 x 3.9 cm left renal mass concerning for renal cell carcinoma. 4. Large left renal cyst. 5. L4 vertebral lytic lesion. 6. Prostatomegaly and history of BPH. 7. History of nephrolithiasis. 8. Microcytic anemia. 9. Protein-calorie malnutrition and failure to thrive. 10. Low TSH. TREATMENT PLAN: 1. I need to determine overall goals of care and plan for biopsy. 2. Consider PET-CT scan at [facility] to compare the current findings with prior. 3. Consider Urology evaluation for biopsy of renal mass versus CT-guided biopsy. 4. Heme-Onc evaluation - D/W Dr. Sena, who will follow up with the patient 5. Based on plan, biopsy of mediastinal mass can be done. The patient will benefit from thoracic surgery evaluation as an outpatient. 6. Consider GI evaluation and colonoscopy. 7. Monitor volumes and renal function. 8. The patient is DNR/DNI. Subjective Allergies: Coded Allergies: No Known Allergies (Unverified , 08/04/19) Subjective AFVSS O2 needs stable No cough no SOB no FC no CP Objective Last 24 Hour Vital Signs Date Time Temp Pulse Resp B/P (MAP) Pulse Ox O2 Delivery O2 Flow Rate FiO2 08/06/19 12:00 97.5 76 18 127/72 (90) 90 08/06/19 09:00 Nasal Cannula 3.0 08/06/19 08:15 83 123/74 08/06/19 08:00 81 08/06/19 08:00 96.8 83 20 123/74 (90) 94 08/06/19 04:00 97.4 69 20 109/69 (82) 98 08/06/19 04:00 67 08/06/19 02:26 110 132/70 08/06/19 00:00 70 08/06/19 00:00 98.7 78 18 122/74 (90) 94 08/05/19 22:24 88 130/83 08/05/19 21:00 Nasal Cannula 3.0 08/05/19 20:00 89 08/05/19 20:00 98.9 88 18 130/83 (99) 93 08/05/19 16:00 2.0 08/05/19 16:00 87 08/05/19 16:00 98.3 88 19 144/77 (99) 93 Intake and Output 08/05/19 08/06/19 19:00 07:00 Intake Total 260 ml Balance 260 ml Intake Oral 260 ml # Voids 2 2 General Appearance: no acute distress, cachetic HEENT: normocephalic, atraumatic Respiratory/Chest: chest wall non-tender, lungs clear, normal breath sounds, no respiratory distress, no accessory muscle use Cardiovascular: normal peripheral pulses, normal rate, regular rhythm Abdomen: normal bowel sounds, soft, non tender, no organomegaly, non distended , no mass Extremities: no cyanosis, no clubbing, no edema Microbiology Date/Time Source Procedure Growth Status 08/05/19 00:46 Rectum Received Laboratory Tests 08/05/19 14:50: Troponin I 0.000 08/06/19 08:00: Troponin I 0.000, White Blood Count 7.7, Red Blood Count 4.46L, Hemoglobin 10.3L , Hematocrit 34.1L, Mean Corpuscular Volume 76L, Mean Corpuscular Hemoglobin 23.1L, Mean Corpuscular Hemoglobin Concent 30.3L, Red Cell Distribution Width 15.3H, Platelet Count 405, Mean Platelet Volume 4.6L, Neutrophils (%) (Auto) 68.7, Lymphocytes (%) (Auto) 23.1, Monocytes (%) (Auto) 6.7, Eosinophils (%) ( Auto) 0.3, Basophils (%) (Auto) 1.2, Iron Level 19L, Total Iron Binding Capacity 282, Percent Iron Saturation 7L, Unsaturated Iron Binding 263, Ferritin 61, Free Thyroxine 0.98, Free Triiodothyronine 2.8, Thyroid Stimulating Immunoglobulin [Pending] Current Medications Medications (Trade) Dose Ordered Sig/Yovany Route PRN Reason Start Time Stop Time Status Last Admin Dose Admin Acetaminophen (Tylenol) 1,000 mg Q8H PRN ORAL Mild Pain/Temp > 100.5 08/05/19 03:45 09/04/19 03:44 Acetaminophen/ Hydrocodone Bitart ([place] 5/325) 1 tab Q4H PRN ORAL Moderate Pain (Pain Scale 4-6) 08/05/19 03:45 08/12/19 03:44 Heparin Sodium (Porcine) (Heparin 5000 units/ml) 5,000 units EVERY 8 HOURS SUBQ 08/05/19 06:00 09/04/19 05:59 08/06/19 06:06 Iohexol (OMNIPAQUE-300 100ml) 100 ml NOW PRN INJ Radiology Procedure 08/04/19 23:45 08/06/19 23:40 Metoprolol Tartrate (Lopressor) 12.5 mg Q12HR ORAL 08/05/19 21:00 09/04/19 20:59 08/06/19 08:15 Wilfrido Ken MD Aug 06, 2019 12:54
--- NOTE | 2019-08-06 14:00 | NUR ---
NURSE NOTES: Patient's son came to molded goods spot picker the patient and signed all of the discharge instructions. Patient's son is his decision maker. All of patient's questions answered. Patient is in stable condition with an O2 sat of 91% on room air. VSS. No SOB/pain noted. IV site, wristband, and monitor removed. Patient and son in good spirits upon discharge and will follow up with oncologist within one week. Patient discharged safely from floor along with son.
--- NOTE | 2019-08-07 09:32 | Discharge Summary ---
Discharge Summary Discharge Summary _ DATE OF ADMISSION: 08/05/2019 DATE OF DISCHARGE: 08/06/2019 DISCHARGED BY: Dr Acevedo REASON FOR ADMISSION: 78 years old male with no significant past medical history, however not seen the doctor for many years, presented with chief complaint of generalized pain for several days. He reported lightheadedness and having hard time to concentrate. Patient also noted weakness in his right lower extremity. He denied chest pain or shortness of breath . He denied fever and chills. He denied nausea and vomiting. No slurred speech. Upon evaluation vital signs revealed elevated blood pressure 156/75, pulse oximetry was 89% on room air. Laboratory work-up revealed no leukocytosis , hemoglobin 9.4 , hematocrit 31, platelet count 356. Troponin negative. Stable electrolytes. Glucose 116. BUN 32 , creatinine 1.2 . Albumin 3.0. Urinalysis revealed pyuria , few bacteria, +[address] of the head demonstrated chronic and age-related changes, but was negative for acute intracranial bleeding or mass-effect. Chest x-ray revealed large right mediastinal mass with mild upper mediastinal widening. Diffuse bilateral interstitial disease. Acuity undetermined , suspect combination of acute and chronic. Presence of bronchiectasis suggested a significant component of chronic fibrosis , but the presence of Kurley B-lines on the right as well as the bilateral pleural fluid raised the possibility of component of interstitial edema. CT of the chest/abdomen/pelvis demonstrated : -4.8 x 3.6 x 4.8 cm left lower pole renal cystic and solid mass, suspicious for renal neoplasm. -Diffusely enlarged thyroid with innumerable nodules and calcifications. Most likely representing multinodular goiter, but given evidence of disseminated neoplasm elsewhere the possibility of neoplastic involvement should be considered. -Separate 8.3 x 5.1 x 6.9 cm right upper mediastinal mass. This could represent metastatic thyroid carcinoma. However, given the similarity in appearance to the thyroid, this could also represent a mass of thyroid origin. -Extensive mediastinal lymphadenopathy, presumably neoplastic -Bilateral pleural effusions. -Bilateral pulmonary parenchymal interstitial disease. Most likely on the basis of pulmonary edema, but neoplastic interstitial disease also possible, clinically given the presence of pulmonary nodules. -Colonic diverticulosis. No evidence of diverticulitis. -Prostatomegaly. EKG revealed multifocal atrial rhythm Patient subsequently admitted for further management. CONSULTANTS: smoking tobacco packer hand Dr. Luke pulmonary graphic engineer Dr. Nielsen [facility] COURSE: Patient admitted to telemetry floor. Patient with DNR/DNI status Cardiology , pulmonology and endocrinology followed-up. Supplemental oxygen provided as needed to keep pulse oximetry above 92%. Pulmonary toilet with handheld nebulizing provided as needed. [employer] Sales Representative recommended repeat PET- CT scan at [facility] to compare the current findings with the prior. Patient will need hematology oncology evaluation /with Dr Sena , which will be done as outpatient. Patient will require biopsy of mediastinal mass as well as the probably biopsy of renal mass by urologist versus CT-guided biopsy. Patient will also benefit from thoracic surgeon evaluation, which can be done as outpatient. Patient will need GI evaluation and colonoscopy. Patient with DNR/DNI status, and further goals of care need to be determined to proceed with outpatient work-up. Renal parameters and electrolytes were closely monitored, electrolytes corrected as needed. With IV hydration BUN from 32 down to 25, creatinine from 1.2 down to 1.0. Cardiology seen and evaluated patient due to atrial fibrillation. Echocardiogram revealed preserved ejection fraction with no evidence of wall motion abnormality. Right ventricular systolic pressure of 20. Patient developed atrial fibrillation after admission , but rhythm spontaneously reverted back to sinus rhythm. No evidence of acute coronary syndrome. Repeated and initial troponin were negative . Patient denied chest pain , no ischemic changes on EKG. Central Office Equipment Engineer recommended continue beta-eddie , based on heart rate and blood pressure response. No need for anticoagulation , given likely renal cell carcinoma and increased risk for bleeding. Blood pressure was managed with beta-eddie . Pain management was addressed. DVT prophylaxis provided. Barrel Bung Remover And Dumper followed . 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 TSH was undetectable , which was suggestive of hyperthyroidism, but clinically patient did not look thyrotoxic . Free T4 and T3 were ordered and results were within normal limits. Patient will need to be started on treatment with antithyroid medication/ methimazole. Barrel Bung Remover And Dumper stated that he will decide on the dose of methimazole, based on levels of free T4 and T3, and they were within normal range. Patient already was treated with beta-eddie/metoprolol as per smoking tobacco packer hand. Review of the imaging of the thyroid revealed multiple nodules in both lobes , but none of them were indication for fine-needle aspiration. At this time graphic engineer recommended follow-up with surveillance thyroid ultrasound in 6 months. Also follow-up with graphic engineer as outpatient to initiate treatment with methimazole . Hemoglobin and hematocrit were closely monitored with goal to keep hemoglobin above 7. Hemoglobin and hematocrit remained at the baseline; prior to discharge hemoglobin 10.3, hematocrit 34.1. All findings were discussed with patient's son. Patient to follow up with outpatient work-up as discussed. Patient was stable for discharge. Goals of care need to be clarified. 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 DISCHARGE INSTRUCTIONS: Patient was discharged home . Follow up with primary care provider and oncologist in one week. I have been assigned to dictate discharge summary for this account. I was not involved in the patient's management. Nadja Johnson NP Aug 07, 2019 09:32
== END 2019-08-06 14:00 | disposition home or self-care (01) | DRG 687 ==
LOC: EMR 22:08 → 2E 08-05 00:01 → EDBEDREQSVC 08-05 01:37 → EDBEDREQ 08-05 01:38
DX: C64.2 Malignant neoplasm of left kidney, except renal pelvis (principal); E46 Unspecified protein-calorie malnutrition; C78.1 Secondary malignant neoplasm of mediastinum; Z68.1 Body mass index [BMI] 19.9 or less, adult; E05.20 Thyrotoxicosis with toxic multinodular goiter without thyrotoxic crisis or storm; R53.1 Weakness; N28.89 Other specified disorders of kidney and ureter; I49.8 Other specified cardiac arrhythmias; D64.9 Anemia, unspecified; Z66 Do not resuscitate; N40.0 Benign prostatic hyperplasia without lower urinary tract symptoms; R62.7 Adult failure to thrive; I48.91 Unspecified atrial fibrillation; N28.1 Cyst of kidney, acquired; I49.9 Cardiac arrhythmia, unspecified; M89.9 Disorder of bone, unspecified; R03.0 Elevated blood-pressure reading, without diagnosis of hypertension
CPT/HCPCS: 36415; 70450; 71045; 71260; 74177; 76536; 80048; 80053; 81003; 82728; 82962; 83036; 83540; 83550; 83880; 84436; 84439; 84443; 84481; 84484; 85025; 85610; 85730; 87081; 93005; 93306; 96360; 99285